=== PATIENT | female | born 1970 | race Caucasian/White ===

== ENCOUNTER → 2018-09-25 | Outpatient (CLI) | payer OTHER ==
[2015-05-03 06:50] VITALS: BP 147/109
[2018-09-25 16:00] LABS: BASO # 0.1 x10^3/uL (0.0-0.2); BASO % 1 % (0-3); EOS # 0.1 x10^3/uL (0.0-0.7); EOS % 1 % (0-3); HEMATOCRIT 46.7 % (36.0-47.0); LYMPH # 3.3 x10^3/uL (1.0-4.8); LYMPH % 32 % (24-48); MEAN CORPUSCULAR HEMOGLOBIN 30 pg (25-35); MEAN CORPUSCULAR HGB CONC 34 g/dL (31-37); MEAN CORPUSCULAR VOLUME 87 fL (79-100); MONO % 10 % (0-9); NEUT % 57 % (31-73); PLATELET COUNT 275 x10^3/uL (140-400); RED BLOOD COUNT 5.34 x10^6/uL (3.50-5.40); RED CELL DISTRIBUTION WIDTH 12.9 % (11.5-14.5); WHITE BLOOD COUNT 10.4 x10^3/uL (4.0-11.0)
[2018-09-25 16:09] LABS: ALBUMIN 4.2 g/dL (3.4-5.0); ALBUMIN/GLOBULIN RATIO 1.1 (1.0-1.7); CALCIUM 9.6 mg/dL (8.5-10.1); CREATININE 0.9 mg/dL (0.6-1.0); GFR 66.3; POTASSIUM 3.8 mmol/L (3.5-5.1); TOTAL BILIRUBIN 0.6 mg/dL (0.2-1.0); TOTAL PROTEIN 7.9 g/dL (6.4-8.2)
[2018-09-25 17:00] LABS: BASE EXCESS COOX 0 mmol/L (-3-3); HCO3 COOX 24 mmol/L (21-28); METHEMOGLOBIN 0.5 % (0.0-1.9); OXYHEMOGLOBIN 93.3 %; PCO2 COOX 36 mmHg (35-46); PO2 COOX 73 mmHg (75-108); SAT O2 COOX 94 % (92-99)
== END | disposition home or self-care (01) ==
LOC: LAB 15:17
PROVIDERS: ATTEND Internal Medicine
DX: Z77.098 Contact with and (suspected) exposure to other hazardous, chiefly nonmedicinal, chemicals (principal)
CPT/HCPCS: 36415; 36600; 80053; 80061; 82805; 84443; 85025

== ENCOUNTER → 2019-12-28 | Outpatient (CLI) | payer OTHER ==
[2015-05-03 06:50] VITALS: BP 147/109
--- NOTE | 2019-12-28 09:19 | RAD ---
Examination: Ultrasound abdomen complete HISTORY: History of elevated liver function tests COMPARISON: None available FINDINGS: The visualized pancreas grossly appears unremarkable. There is increased echogenicity identified throughout the liver likely hepatic steatosis. No evidence of gallstones. The right kidney measures 13.0 x 5.2 x 5.6 cm . The left kidney measures 12.7 x 5.8 x 5.8 cm. The common bile duct measures 5.3 mm in diameter. The visualized pancreas, spleen grossly appears unremarkable. IMPRESSION: 1. Increased echogenicity identified throughout the liver likely hepatic steatosis. 2. No evidence of gallstones. Electronically signed by: Shai Belcher MD (12/28/2019 9:17 AM) [id number]
== END | disposition home or self-care (01) ==
LOC: US 08:43
PROVIDERS: ATTEND Internal Medicine
DX: R94.5 Abnormal results of liver function studies (principal)
CPT/HCPCS: 76700